=== PATIENT | male | born 1995 | race Caucasian/White ===

== ENCOUNTER 2020-09-13 10:39 | Emergency (ER) | payer OTHER ==
[~2020-09-13] VITALS: Ht 180.3 cm; Wt 68.0 kg
[2020-09-13 11:24] LABS: BASOPHILS % (AUTO) 0.4 % (0.0-2.0); EOSINOPHILS % (AUTO) 3.6 % (0.0-6.0); HEMATOCRIT 37 % (39-51); HEMOGLOBIN 12.3 g/dL (13.5-17.5); LYMPHOCYTES # (AUTO) 1.8 /CMM (0.8-4.8); LYMPHOCYTES % (AUTO) 29.2 % (20.0-44.0); MEAN CORPUSCULAR HGB CONC 33 g/dl (31.0-36.0); MEAN CORPUSCULAR VOLUME 86 fL (80-96); MONOCYTES # (AUTO) 0.8 /CMM (0.1-1.30); MONOCYTES % (AUTO) 13.1 % (2.0-12.0); NEUTROPHILS # (AUTO) 3.4 /CMM (1.8-8.9); NEUTROPHILS % (AUTO) 53.7 % (43.0-81.0); PLATELET COUNT (AUTO) 359 /CMM (150-450); RED BLOOD CELL COUNT(AUTO) 4.34 MIL/uL (4.5-6.0); WHITE BLOOD COUNT (AUTO) 6.3 K/uL (4.3-11.0)
[2020-09-13 11:32] LABS: CALCIUM, SERUM 9.2 mg/dL (8.5-10.1); CARBON DIOXIDE 28 mmol/L (21-32); CHLORIDE 102 mmol/L (98-107); CREATININE 0.9 mg/dL (0.6-1.3); GLUCOSE 84 mg/dL (74-106); POTASSIUM 3.9 mmol/L (3.5-5.1); SODIUM SERUM 139 mmol/L (136-145); UREA NITROGEN, BLOOD 10 mg/dL (7-18)
[2020-09-13 11:51] VITALS: BP 122/68
== END 2020-09-13 11:52 | disposition home or self-care (01) ==
LOC: ER 10:39
DX: R07.89 Other chest pain (principal)
CPT/HCPCS: 36415; 71045-TC; 80048-TC; 84484-TC; 85025-TC

== ENCOUNTER 2020-12-31 00:17 | Emergency (ER) | payer OTHER ==
[~2020-12-31] VITALS: Ht 193 cm; Wt 93.0 kg
[2020-12-31 00:17] VITALS: BP 122/73
[2020-12-31] MEDS ORDERED: AMOX500T2 PO (01:23)
[2020-12-31] MEDS ORDERED: KETOROLAC TROMETHAMINE INJ 60 MG/2 ML VIAL IM ONE ×2 (01:30→01:38)
[2020-12-31] MEDS ORDERED: AMOXICILLIN TRIHYDRATE 500 MG CAPSULE PO ONE (01:30)
[2020-12-31] MEDS ORDERED: AMOXICILLIN TRIHYDRATE 250 MG CAPSULE ONE (01:38)
== END 2020-12-31 01:47 | disposition home or self-care (01) ==
LOC: ER 00:20
DX: J18.9 Pneumonia, unspecified organism (principal); R07.89 Other chest pain; G35 Multiple sclerosis
CPT/HCPCS: 71045; 93005; 96372; 99283; J1885